=== PATIENT | male | born 1960 | race Caucasian/White ===

== ENCOUNTER 2016-07-19 16:51 | Emergency (ER) | payer OTHER ==
[~2016-07-19] VITALS: Ht 175.3 cm; Wt 83.5 kg
[~2016-07-19 16:51] MED LIST: LISI-662 PO; OLAN10TA3 PO
[2016-07-19] MEDS ORDERED: LORA10TA7 PO (17:11)
[2016-07-19] MEDS ORDERED: FOLI0.4T30 PO (17:11)
[2016-07-19 17:44] LABS: INFLUENZA TYPE B POSITIVE FOR TYPE B (NEGATIVE)
[2016-07-19 19:17] VITALS: BP 150/89
== END 2016-07-19 19:24 | disposition home or self-care (01) ==
LOC: EMS 16:53
DX: J11.1 Influenza due to unidentified influenza virus with other respiratory manifestations (principal); I10 Essential (primary) hypertension
CPT/HCPCS: 87430; 87804; 99284

== ENCOUNTER 2021-04-05 13:02 | Emergency (ER) | payer OTHER ==
[~2021-04-05] VITALS: Ht 175.3 cm; Wt 79.5 kg
[~2021-04-05 13:02] MED LIST changes: +FOLI0.4T6 PO; -LISI-662 PO; +LISI-894 PO; +LORA10TA7 PO; -OLAN10TA3 PO; +OLAN10TA74 PO
[2021-04-05 13:31] VITALS: BP 120/72
== END 2021-04-05 15:06 | disposition home or self-care (01) ==
LOC: EMS 13:10
DX: J21.9 Acute bronchiolitis, unspecified (principal); F17.210 Nicotine dependence, cigarettes, uncomplicated; F31.9 Bipolar disorder, unspecified; I10 Essential (primary) hypertension; F20.9 Schizophrenia, unspecified; Z20.822 Contact with and (suspected) exposure to COVID-19; Z79.899 Other long term (current) drug therapy
CPT/HCPCS: 99283; U0003